=== PATIENT | male | born 1975 ===

== ENCOUNTER 2020-12-10 10:49 | Day surgery (SDC) | payer OTHER ==
[~2020-12-10] VITALS: Ht 172.7 cm; Wt 81.5 kg
[~2020-12-10 10:49] MED LIST: Cleocin HCl150 MG PO; DOXY100; IBUP400 PO; NAPR500 PO; ONDA4 PO; OXYACE5T PO; PRED10 PO
== END 2020-12-10 12:37 | disposition home or self-care (01) ==
LOC: ORSCSDS 10:49
PROVIDERS: Internal Medicine Gastroenterology
PROC: 0DBM8ZX Excision of Descending Colon, Via Natural or Artificial Opening Endoscopic, Diagnostic (ICD-10-PCS; principal; 2020-12-10 12:00)
DX: K62.5 Hemorrhage of anus and rectum (principal); Z86.010 Personal history of colon polyps; D12.4 Benign neoplasm of descending colon; K52.9 Noninfective gastroenteritis and colitis, unspecified; Z87.19 Personal history of other diseases of the digestive system; K57.30 Diverticulosis of large intestine without perforation or abscess without bleeding; K64.1 Second degree hemorrhoids
CPT/HCPCS: 88305; J2704; J7120